=== PATIENT | female | born 1945 | race Caucasian/White ===

== ENCOUNTER 2017-03-07 18:23 | Emergency (ER) | payer MEDICARE, OTHER ==
[~2017-03-07] VITALS: Ht 157.5 cm; Wt 79.0 kg
[~2017-03-07 18:23] MED LIST: ALPH-E400 UNIT PO; AMLODIPINE10 MG PO; AMLODIPINE5 MG PO; ARMOUR THYRO60 MG PO; ASPIRIN LOW DOS81 MG PO; B COMPLE4 PO; CALCIUM CARB PO; CARAFATE PO; CLONIDINE0.1 MG PO; CO Q10 PO; COMPAZINE10 M1 PO; COZAAR100 MG PO; ELIQUIS2.5 MG PO; ELIQUIS5 MG PO; FISH OIL1200 M2; HUMALOG100 UNIT/M; ISOSORB MONO30 MG PO; ISOSORBIDE MONO30 MG PO; KLOR-CON 1010 MEQ PO; LASIX 40 MG TAB40 MG PO; LEVEMIR FL100 UNIT/M SC; LIOTHYRONINE S25 MCG PO; LISINOPRIL20 M1 PO; LORTAB 7.5-3251 TAB; LORTAB 7.5-3251 TAB PO; METOPROLOL SUC100 MG PO; METOPROLOL SUC200 MG PO; MULTI VIT PO; NORCO1 TA1 PO; NOVOLOG FLEXPEN SC; OMEPRAZOLE20 M2 PO; PACERONE200 MG PO; PAROXETINE HCL20 MG PO; PROTONIX40 MG PO; SIMVASTATIN20 MG PO; SUCRALFATE1 GM PO; TAM75CAP PO; TIZANIDINE2 MG PO; [UNRECOGNIZED DRUG - OTHER] PO; [UNRECOGNIZED DRUG - SUPPLY] SC
[2017-03-07] MEDS ORDERED: PERCOCET 5/325M1 TAB PO (20:32)
[2017-03-07 21:15] VITALS: BP 195/68
== END 2017-03-07 21:15 | disposition home or self-care (01) ==
LOC: ED 18:23
PROC: 2W3RX1Z Immobilization of Left Lower Leg using Splint (ICD-10-PCS; principal; 2017-03-07)
DX: S92.322A Displaced fracture of second metatarsal bone, left foot, initial encounter for closed fracture (principal); S92.332A Displaced fracture of third metatarsal bone, left foot, initial encounter for closed fracture; S92.342A Displaced fracture of fourth metatarsal bone, left foot, initial encounter for closed fracture; S92.352A Displaced fracture of fifth metatarsal bone, left foot, initial encounter for closed fracture; S92.512A Displaced fracture of proximal phalanx of left lesser toe(s), initial encounter for closed fracture; S50.02XA Contusion of left elbow, initial encounter; S00.03XA Contusion of scalp, initial encounter; E11.9 Type 2 diabetes mellitus without complications; I11.0 Hypertensive heart disease with heart failure; I50.9 Heart failure, unspecified; W01.0XXA Fall on same level from slipping, tripping and stumbling without subsequent striking against object, initial encounter; Y92.009 Unspecified place in unspecified non-institutional (private) residence as the place of occurrence of the external cause; Z95.810 Presence of automatic (implantable) cardiac defibrillator

== ENCOUNTER 2017-09-03 10:13 | Inpatient (IN) | payer MEDICARE, OTHER ==
[~2017-09-03] VITALS: Ht 157.5 cm; Wt 84.4 kg
[~2017-09-03 10:13] MED LIST changes: +PERCOCET 5/325M1 TAB PO
[2017-09-03] MEDS ORDERED: ELIQUIS5 MG PO (14:06)
[2017-09-03] MEDS ORDERED: CORDARONE/PACE100 MG PO (14:07)
[2017-09-03] MEDS ORDERED: METOPROL TAR25 M1 PO (14:07)
[2017-09-03] MEDS ORDERED: AMLODIPINE10 MG PO (14:08)
[2017-09-03] MEDS ORDERED: LOSARTAN POT100 MG PO (14:08)
[2017-09-03] MEDS ORDERED: LEVEMIR100 UNIT/M SC (14:10)
[2017-09-03] MEDS ORDERED: NOVOLOG100 UNIT/M SC (14:11)
[2017-09-03] MEDS ORDERED: CALCI23 PO (14:12)
[2017-09-03] MEDS ORDERED: MECLIZINE25 MG PO (14:12)
[2017-09-03] MEDS ORDERED: MAG OXIDE400 MG PO (14:13)
[2017-09-03] MEDS ORDERED: PANTOPRAZOLE SO40 M1 PO (14:14)
[2017-09-03] MEDS ORDERED: CO Q-10200 MG PO (14:35)
[2017-09-06] VITALS (9 sets, daily range): BP systolic 121–147; BP diastolic 42–68
[2017-09-06 12:08] LABS: ALBUMIN 3.9 g/dL (3.2-5.0); BILIRUBIN, TOTAL 0.6 mg/dL (0.0-1.4); CREATININE 1.2 mg/dL (0.5-1.0); POTASSIUM 4.2 mmol/l (3.5-5.1); TOTAL PROTEIN 7.3 g/dL (6.3-8.2)
[2017-09-07 04:05] VITALS: BP 142/67
[2017-09-07 05:22] LABS: HEMATOCRIT 34.1 % (37.0-47.0)
[2017-09-07 05:32] LABS: HEMOGLOBIN 10.9 g/dl (12.0-16.0)
[2017-09-07 07:40] VITALS: BP 147/51
[2017-09-07 08:13] LABS: ANION GAP 15 (6-22 (CALC)); BUN 22 mg/dL (8-23); BUN/CREATININE RATIO 22 (12-20 (CALC)); CARBON DIOXIDE 18 mmol/l (22-30); CHLORIDE 113 mmol/l (95-108); GFR 55 ML/MIN (>=60 (CALC)); GFR FOR AFR.AMER. > 60 ML/MIN (>=60 (CALC)); POTASSIUM 3.9 mmol/l (3.5-5.1); SODIUM 142 mmol/l (137-146)
[2017-09-07 08:37] LABS: HEMATOCRIT 38.7 % (37.0-47.0); HEMOGLOBIN 12.1 g/dl (12.0-16.0); IMMATURE GRANULOCYTES 0.4 % (0.0-1.0); MEAN CELL VOLUME 93.3 fL CALC (80.0-100.0); MEAN CORPUSCULAR HGB 29.2 pG CALC (26.0-32.0); MEAN CORPUSCULAR HGB CONC 31.3 g/L CALC (32.0-36.0); NEUT# 9.33 thou/uL (2.00-7.15); RED BLOOD COUNT 4.15 mill/uL (4.20-5.60); RED CELL DISTRI WIDTH 13.5 % (11.5-15.5)
[2017-09-07 15:15] VITALS: BP 112/51
[2017-09-07 19:00] VITALS: BP 135/64
[2017-09-08] VITALS (8 sets, daily range): BP systolic 95–158; BP diastolic 51–83
[2017-09-08 05:21] LABS: HEMATOCRIT 33.3 % (37.0-47.0); HEMOGLOBIN 10.7 g/dl (12.0-16.0); IMMATURE GRANULOCYTES 0.3 % (0.0-1.0); MEAN CELL VOLUME 91.2 fL CALC (80.0-100.0); MEAN CORPUSCULAR HGB 29.3 pG CALC (26.0-32.0); MEAN CORPUSCULAR HGB CONC 32.1 g/L CALC (32.0-36.0); NEUT# 5.25 thou/uL (2.00-7.15); RED BLOOD COUNT 3.65 mill/uL (4.20-5.60); RED CELL DISTRI WIDTH 13.8 % (11.5-15.5)
[2017-09-08 05:33] LABS: ALBUMIN 3.4 g/dL (3.2-5.0); BILIRUBIN, TOTAL 0.3 mg/dL (0.0-1.4); CREATININE 1.6 mg/dL (0.5-1.0); POTASSIUM 4.1 mmol/l (3.5-5.1); TOTAL PROTEIN 6.5 g/dL (6.3-8.2)
[2017-09-09 00:07] VITALS: BP 123/59
[2017-09-09 03:49] VITALS: BP 133/57
[2017-09-09 07:21] VITALS: BP 136/57
[2017-09-09] MEDS ORDERED: LORTAB 7.57.5 MG PO (14:52)
[2017-09-09 15:39] VITALS: BP 112/49
== END 2017-09-09 16:18 | DRG 483 ==
LOC: MS2 09-06 10:51
PROVIDERS: Anesthesiology; ADMIT Orthopaedic Surgery; ATTEND Internal Medicine Geriatric Medicine
PROC: 0RRJ00Z Replacement of Right Shoulder Joint with Reverse Ball and Socket Synthetic Substitute, Open Approach (ICD-10-PCS; principal; 2017-09-06)
PROC: 0LS30ZZ Reposition Right Upper Arm Tendon, Open Approach (ICD-10-PCS; 2017-09-06)
DX: M19.011 Primary osteoarthritis, right shoulder (principal); E11.65 Type 2 diabetes mellitus with hyperglycemia; I48.91 Unspecified atrial fibrillation; F33.8 Other recurrent depressive disorders; D64.9 Anemia, unspecified; S46.011A Strain of muscle(s) and tendon(s) of the rotator cuff of right shoulder, initial encounter; S46.211A Strain of muscle, fascia and tendon of other parts of biceps, right arm, initial encounter; K29.70 Gastritis, unspecified, without bleeding; I10 Essential (primary) hypertension; I25.10 Atherosclerotic heart disease of native coronary artery without angina pectoris; K21.9 Gastro-esophageal reflux disease without esophagitis; K27.9 Peptic ulcer, site unspecified, unspecified as acute or chronic, without hemorrhage or perforation; E03.9 Hypothyroidism, unspecified; K59.00 Constipation, unspecified; W19.XXXA Unspecified fall, initial encounter; Z79.4 Long term (current) use of insulin; Z95.0 Presence of cardiac pacemaker; Z01.818 Encounter for other preprocedural examination; E78.2 Mixed hyperlipidemia; I25.119 Atherosclerotic heart disease of native coronary artery with unspecified angina pectoris; M75.121 Complete rotator cuff tear or rupture of right shoulder, not specified as traumatic; Z86.2 Personal history of diseases of the blood and blood-forming organs and certain disorders involving the immune mechanism; E78.00 Pure hypercholesterolemia, unspecified; F43.21 Adjustment disorder with depressed mood; Z97.2 Presence of dental prosthetic device (complete) (partial); Z90.49 Acquired absence of other specified parts of digestive tract; Z96.641 Presence of right artificial hip joint; Z95.810 Presence of automatic (implantable) cardiac defibrillator
CPT/HCPCS: J1100; J2710

== ENCOUNTER 2017-11-30 18:14 | Emergency (ER) | payer MEDICARE, OTHER ==
[~2017-11-30] VITALS: Ht 157.5 cm; Wt 84.1 kg
[~2017-11-30 18:14] MED LIST changes: +CALCI23 PO; +CO Q-10200 MG PO; +CORDARONE/PACE100 MG PO; +LEVEMIR100 UNIT/M SC; +LORTAB 7.57.5 MG PO; +LOSARTAN POT100 MG PO; +MAG OXIDE400 MG PO; +MECLIZINE25 MG PO; +METOPROL TAR25 M1 PO; +NOVOLOG100 UNIT/M SC; +PANTOPRAZOLE SO40 M1 PO
[2017-11-30 18:41] LABS: HEMOGLOBIN 12.8 g/dl (12.0-16.0); IMMATURE GRANULOCYTES 0.3 % (0.0-1.0); MEAN CELL VOLUME 87.8 fL CALC (80.0-100.0); MEAN CORPUSCULAR HGB 27.4 pG CALC (26.0-32.0); MEAN CORPUSCULAR HGB CONC 31.2 g/L CALC (32.0-36.0); NEUT# 4.4 thou/uL (2.00-7.15); RED BLOOD COUNT 4.67 mill/uL (4.20-5.60); RED CELL DISTRI WIDTH 14.8 % (11.5-15.5)
[2017-11-30] MEDS ORDERED: PRANDIN1 MG PO (18:54)
[2017-11-30] MEDS ORDERED: NOVOLOG MIX SC (18:54)
[2017-11-30 18:55] LABS: ALBUMIN 4.3 g/dL (3.2-5.0); BILIRUBIN, TOTAL 0.4 mg/dL (0.0-1.4); CREATININE 1.3 mg/dL (0.5-1.0); POTASSIUM 4.3 mmol/l (3.5-5.1); TOTAL PROTEIN 7.7 g/dL (6.3-8.2)
[2017-11-30 21:20] LABS: URINE BILIRUBIN - DIPSTICK NEGATIVE (NEGATIVE); URINE BLOOD DIPSTICK NEGATIVE (NEGATIVE); URINE CLARITY CLEAR; URINE COLOR YELLOW; URINE GLUCOSE - DIPSTICK 500 mg/dL (NEGATIVE); URINE KETONE NEGATIVE (NEGATIVE); URINE LEUK ESTERASE NEGATIVE (NEGATIVE); URINE NITRITE - DIPSTICK NEGATIVE (Negative); URINE PROTEIN - DIPSTICK NEGATIVE (NEG-TRACE); URINE SPECIFIC GRAVITY 1.025
[2017-11-30] MEDS ORDERED: FIORICET PO (23:07)
[2017-11-30] MEDS ORDERED: ZOFRAN ODT4 MG PO (23:07)
[2017-11-30 23:24] VITALS: BP 139/63
== END 2017-11-30 23:24 | disposition home or self-care (01) ==
LOC: ED 18:14
DX: E11.649 Type 2 diabetes mellitus with hypoglycemia without coma (principal); R51 Headache; I11.0 Hypertensive heart disease with heart failure; I50.9 Heart failure, unspecified; E78.5 Hyperlipidemia, unspecified; E07.9 Disorder of thyroid, unspecified; M19.90 Unspecified osteoarthritis, unspecified site; Z95.810 Presence of automatic (implantable) cardiac defibrillator

== ENCOUNTER → 2018-03-19 | Outpatient (REF) | payer MEDICARE, OTHER ==
[~2018-03-19] MED LIST changes: +FIORICET PO; +NOVOLOG MIX SC; +PRANDIN1 MG PO; +ZOFRAN ODT4 MG PO
[2018-03-19 09:42] LABS: HEMATOCRIT 37.4 % (37.0-47.0); HEMOGLOBIN 11.8 g/dl (12.0-16.0); MEAN CORPUSCULAR HGB 27.4 pG CALC (26.0-32.0); MEAN CORPUSCULAR HGB CONC 31.6 g/L CALC (32.0-36.0); RED BLOOD COUNT 4.3 mill/uL (4.20-5.60); RED CELL DISTRI WIDTH 14.5 % (11.5-15.5)
[2018-03-19 10:07] LABS: ALBUMIN 3.8 g/dL (3.2-5.0); ALKALINE PHOSPHATASE 71 u/l (38-126); ANION GAP 13 (6-22 (CALC)); BILIRUBIN, TOTAL 0.4 mg/dL (0.0-1.4); BUN 18 mg/dL (8-23); BUN/CREATININE RATIO 15 (12-20 (CALC)); CALCULATED LDLCHOLESTEROL 76 mg/dL (62-129 (CALC)); CARBON DIOXIDE 29 mmol/l (22-30); CHLORIDE 105 mmol/l (95-108); CHOLESTEROL HDL RATIO 2.3 (<4.4 (CALC)); CREATININE 1.2 mg/dL (0.5-1.0); GFR 44 ML/MIN (>=60 (CALC)); GFR FOR AFR.AMER. 54 ML/MIN (>=60 (CALC)); HDL CHOLESTEROL 75 mg/dL (>=40); POTASSIUM 4.5 mmol/l (3.5-5.1); SGOT/AST 30 u/l (9-36); SODIUM 142 mmol/l (137-146); TOTAL CHOLESTEROL 174 mg/dl (0-199); TOTAL TRIGLYCERIDES 112 mg/dl (30-149); VLDL CHOLESTROL 22 mg/dl (0-48 (CALC))
[2018-03-19 10:35] LABS: TSH, 3RD GENERATION < 0.02 uIU/mL (0.47 - 4.68)
== END | disposition home or self-care (01) ==
LOC: LAB 09:08
PROVIDERS: ATTEND Internal Medicine
DX: E03.2 Hypothyroidism due to medicaments and other exogenous substances (principal); E78.2 Mixed hyperlipidemia; I10 Essential (primary) hypertension; N18.3 Chronic kidney disease, stage 3 (moderate); E11.22 Type 2 diabetes mellitus with diabetic chronic kidney disease; E11.42 Type 2 diabetes mellitus with diabetic polyneuropathy

== ENCOUNTER → 2018-08-29 | Outpatient (REF) | payer MEDICARE, OTHER | END | disposition home or self-care (01) | LOC: DI 11:52 | PROVIDERS: ATTEND Orthopaedic Surgery | DX: M25.511 Pain in right shoulder (principal); Z47.1 Aftercare following joint replacement surgery; Z96.611 Presence of right artificial shoulder joint ==

== ENCOUNTER 2019-05-25 07:15 | Day surgery (SDC) | payer MEDICARE, OTHER ==
[~2019-05-25] VITALS: Ht 157.5 cm; Wt 98.9 kg
[~2019-05-25 07:15] MED LIST changes: +GABAPENTIN100 MG PO; +NOVOLIN R100 UNIT/M; +TOPROL XL PO; +TRAMADOL HCL50 MG PO; +VITAMIN D2000 UNI1 PO
[2019-05-25 09:44] VITALS: BP 142/61
== END 2019-05-25 10:00 | disposition home or self-care (01) ==
LOC: ENDO 07:15 → ORM 08:45 → ENDO 10:00
PROVIDERS: ATTEND Surgery
PROC: 0DBH8ZX Excision of Cecum, Via Natural or Artificial Opening Endoscopic, Diagnostic (ICD-10-PCS; principal; 2019-05-25)
PROC: 0DB48ZX Excision of Esophagogastric Junction, Via Natural or Artificial Opening Endoscopic, Diagnostic (ICD-10-PCS; 2019-05-25)
PROC: 0DB78ZX Excision of Stomach, Pylorus, Via Natural or Artificial Opening Endoscopic, Diagnostic (ICD-10-PCS; 2019-05-25)
DX: D12.0 Benign neoplasm of cecum (principal); K57.31 Diverticulosis of large intestine without perforation or abscess with bleeding; K64.8 Other hemorrhoids; K29.71 Gastritis, unspecified, with bleeding; K44.9 Diaphragmatic hernia without obstruction or gangrene; K31.9 Disease of stomach and duodenum, unspecified; D17.5 Benign lipomatous neoplasm of intra-abdominal organs; K21.9 Gastro-esophageal reflux disease without esophagitis; E11.9 Type 2 diabetes mellitus without complications; I10 Essential (primary) hypertension; Z95.810 Presence of automatic (implantable) cardiac defibrillator; Z86.010 Personal history of colon polyps

== ENCOUNTER 2020-01-03 05:59 | Day surgery (SDC) | payer MEDICARE, OTHER ==
[~2020-01-03] VITALS: Ht 157.5 cm; Wt 100.7 kg
[~2020-01-03 05:59] MED LIST changes: +ATORVASTATIN CA20 MG PO; +GABAPENTIN400 M2 PO; +NORVASC5 M1 PO; +SPIRONOLACTONE25 MG PO; +TOUJEO SOL300 UNIT/M IV; +TURMERI1 PO
[2020-01-03 07:52] VITALS: BP 109/50
[2020-01-30] MEDS ORDERED: GABAPENTIN400 M2 PO (11:52)
== END 2020-01-03 08:25 | disposition home or self-care (01) ==
LOC: ORM 05:59
PROVIDERS: ATTEND Anesthesiology Pain Medicine
DX: M54.5 Low back pain (principal); M12.9 Arthropathy, unspecified; Z01.84 Encounter for antibody response examination
CPT/HCPCS: Q9967

== ENCOUNTER 2020-02-14 05:50 | Day surgery (SDC) | payer MEDICARE, OTHER ==
[2020-02-14 09:21] VITALS: BP 150/67
== END 2020-02-14 08:15 ==
LOC: ORM 05:50
PROVIDERS: ATTEND Anesthesiology Pain Medicine
DX: M54.5 Low back pain (principal); M12.9 Arthropathy, unspecified; Z01.84 Encounter for antibody response examination

== ENCOUNTER 2020-02-28 06:22 | Day surgery (SDC) | payer MEDICARE, OTHER ==
[~2020-02-28] VITALS: Ht 157.5 cm; Wt 96.2 kg
[2020-02-28] MEDS ORDERED: NORCO1 TA2 PO (07:42)
[2020-02-28 09:17] VITALS: BP 145/59
== END 2020-02-28 09:10 | disposition home or self-care (01) ==
LOC: ORM 06:22
PROVIDERS: ATTEND Anesthesiology Pain Medicine
DX: M54.5 Low back pain (principal); M12.9 Arthropathy, unspecified; Z01.84 Encounter for antibody response examination